=== PATIENT | female | born 1980 | race African-American/Black ===

== ENCOUNTER 2020-06-13 13:35 | Emergency (ER) | payer SELFPAY ==
[~2020-06-13] VITALS: Ht 170.2 cm; Wt 136.1 kg
[2020-06-13 14:22] LABS: BASOPHILS % (AUTO) 4.2 % (0.0-2.0); EOSINOPHILS % (AUTO) 0.5 % (0.0-3.0); HEMATOCRIT 35.7 % (37.0-47.0); HEMOGLOBIN 11.5 G/DL (12.0-16.0); LYMPHOCYTES % (AUTO) 9.7 % (20.0-45.0); MEAN CORPUSCULAR VOLUME 78 FL (80-99); MONOCYTES % (AUTO) 9.7 % (1.0-10.0); NEUTROPHILS % (AUTO) 75.9 % (45.0-75.0); PLATELET COUNT 340 K/UL (150-450); RED BLOOD COUNT 4.58 M/UL (4.20-5.40); RED CELL DISTRIBUTION WIDTH 13.7 % (11.6-14.8); WHITE BLOOD COUNT 12.4 K/UL (4.8-10.8)
[2020-06-13 14:24] VITALS: BP 139/92
--- NOTE | 2020-06-13 14:26 | NUR ---
ED Nurse Note:pt. was BIBA from the street with fentanyl overdose, pt. is A/Ox2 not answering any questions, blood was sent to labs and IV fluids given, pt. placed on addictions therapist, VSS
[2020-06-13 14:41] LABS: ANION GAP 12 mmol/L (5-15); BLOOD UREA NITROGEN 11 mg/dL (7-18); CALCIUM 9.1 MG/DL (8.5-10.1); CARBON DIOXIDE 24 MMOL/L (21-32); CHLORIDE 102 MMOL/L (98-107); CREATININE 1.3 MG/DL (0.55-1.30); POTASSIUM 3.4 MMOL/L (3.5-5.1); SODIUM 138 MMOL/L (136-145)
[2020-06-13 14:50] LABS: ALANINE AMINOTRANSFERASE 11 U/L (12-78); ALBUMIN/GLOBULIN RATIO 0.6 (1.0-2.7); ALKALINE PHOSPHATASE 72 U/L (46-116); ASPARTATE AMINO TRANSFERASE 15 U/L (15-37); BILIRUBIN,TOTAL 0.2 MG/DL (0.2-1.0)
--- NOTE | 2020-06-13 15:32 | Emergency Room Report ---
History of Present Illness General Chief Complaint: Overdose Source: Patient (Cami Doran) Present Illness HPI 39-year-old female with unknown past medical history brought in by paramedics due to fentanyl overdose and Narcan 4 was given. Patient appears to be speaking full sentences however does not want to answer any questions. Denies any pain by shaking her head. Denies any drug allergy. At this time patient is a poor historian. Appears to be stable with stable vital signs upon arrival. (Cami Doran) Allergies: Coded Allergies: No Known Allergies (Unverified , 06/13/20) COVID-19 Screening COVID-19 risk:Contact w/high r: No Has patient experienced sequeira: No COVID-19 Testing performed AUTOMATION AND CONTROLS INSTRUCTOR: No (Cami Doran) Patient History Past Medical History: see triage record Past Surgical History: unable to obtain Family History: unable to obtain Social History: drug use - Fentanyl Now: No Reviewed Nursing Documentation: PMH: Agreed; PSxH: Agreed (Cami Jarrett) Nursing Documentation-PMH Past Medical History: No Stated History (Cami Doran) Review of Systems All Other Systems: negative except mentioned in HPI (Cami Doran) Physical Exam Vital Signs Date Time Temp Pulse Resp B/P (MAP) Pulse Ox O2 Delivery O2 Flow Rate FiO2 06/13/20 13:37 97.9 113 16 144/97 (113) 98 Room Air Sp02 EP Interpretation: reviewed, normal General Appearance: alert/responsive, no apparent distress, GCS 15, non-toxic Head: atraumatic Eyes: PERRL, lids + conjunctiva normal ENT: hearing intact, no angioedema Neck: supple/symm/no masses, no meningismus Respiratory: effort normal, no wheezing, chest symmetrical Cardiovascular: regular rate, rhythm, no edema Cardiovascular #2: 2+ carotid (R), 2+ carotid (L), 2+ dorsalis pedis (R), 2+ dorsalis pedis (L) Gastrointestinal: non-tender, no mass, non-distended, no rebound/guarding, normal bowel sounds Musculoskeletal: gait & station normal, normal ROM Neurologic: oriented x3, sensory intact, normal speech Psychiatric: anxious Skin: normal inspection, no rash Lymphatic: normal inspection (Cami Doran) Medical Decision Making PA Attestation All diagnoses and treatment plans were reviewed and discussed with my supervising physician Dr. Yin (Cami Doran) Diagnostic Impression: Primary Impression: Opiate overdose ER Course 39-year-old female with unknown past medical history brought in by paramedics due to fentanyl overdose and Narcan 4 was given. Patient appears to be speaking full sentences however does not want to answer any questions. Denies any pain by shaking her head. Denies any drug allergy. At this time patient is a poor historian. Appears to be stable with stable vital signs upon arrival. Ddx considered but are not limited to: generalized anxiety disorder, panic attack, depression with psychotic feature, bipolar disorder, drug overdose Refused to give urine Vital signs: are WNL, pt. is afebrile H&PE are most consistent with: Fentanyl overdose ORDERS: Psychiatric order set ED INTERVENTIONS: NS bolus I signed out the patient to Dr. Yin at 8PM (Cami Doran) ER Course Assumed care of the patient from the previous provider at approximately 1999. Please refer to initial note for full history and physical exam. Briefly, 39-year-old female brought in for altered mental status secondary to suspected substance abuse. According to EMS the patient was smoking fentanyl and responded to Narcan administration. No respiratory discretion of the ED. Labs show positive for amphetamines. Other labs within normal limits. Patient is now awake and alert and has been allowed to metabolize in the emergency department for over 7 hours. Able to give us her address. Safe for outpatient follow-up. Counseled on drug abuse and referred to outpatient programs. Instructed to return with new or worsening symptoms. Laboratory Tests Test 06/13/20 14:05 06/13/20 19:10 White Blood Count 12.4 K/UL (4.8-10.8) H Red Blood Count 4.58 M/UL (4.20-5.40) Hemoglobin 11.5 G/DL (12.0-16.0) L Hematocrit 35.7 % (37.0-47.0) L Mean Corpuscular Volume 78 FL (80-99) L Mean Corpuscular Hemoglobin 25.2 PG (27.0-31.0) L Mean Corpuscular Hemoglobin Concent 32.3 G/DL (32.0-36.0) Red Cell Distribution Width 13.7 % (11.6-14.8) Platelet Count 340 K/UL (150-450) Mean Platelet Volume 4.7 FL (6.5-10.1) L Neutrophils (%) (Auto) 75.9 % (45.0-75.0) H Lymphocytes (%) (Auto) 9.7 % (20.0-45.0) L Monocytes (%) (Auto) 9.7 % (1.0-10.0) Eosinophils (%) (Auto) 0.5 % (0.0-3.0) Basophils (%) (Auto) 4.2 % (0.0-2.0) H Sodium Level 138 MMOL/L (136-145) Potassium Level 3.4 MMOL/L (3.5-5.1) L Chloride Level 102 MMOL/L (98-107) Carbon Dioxide Level 24 MMOL/L (21-32) Anion Gap 12 mmol/L (5-15) Blood Urea Nitrogen 11 mg/dL (7-18) Creatinine 1.3 MG/DL (0.55-1.30) Estimated Glomerular Filtration Rate 54.7 mL/min (>60) Glucose Level 109 MG/DL (74-106) H Calcium Level 9.1 MG/DL (8.5-10.1) Total Bilirubin 0.2 MG/DL (0.2-1.0) Aspartate Amino Transferase (AST) 15 U/L (15-37) Alanine Aminotransferase (ALT) 11 U/L (12-78) L Alkaline Phosphatase 72 U/L (46-116) Troponin I 0.000 ng/mL (0.000-0.056) Total Protein 8.4 G/DL (6.4-8.2) H Albumin 3.0 G/DL (3.4-5.0) L Globulin 5.4 g/dL Albumin/Globulin Ratio 0.6 (1.0-2.7) L Salicylates Level 2.9 ug/mL (2.8-20) Acetaminophen Level < 2 MCG/ML (10-30) L Serum Alcohol < 3 mg/dL Urine Color Pale yellow Urine Appearance Clear Urine pH 6 (4.5-8.0) Urine Specific Paulina 1.010 (1.005-1.035) Urine Protein Negative (NEGATIVE) Urine Glucose (UA) Negative (NEGATIVE) Urine Ketones Negative (NEGATIVE) Urine Blood 2+ (NEGATIVE) H Urine Nitrite Negative (NEGATIVE) Urine Bilirubin Negative (NEGATIVE) Urine Urobilinogen Normal MG/DL (0.0-1.0) Urine Leukocyte Esterase Negative (NEGATIVE) Urine RBC 2-4 /HPF (0 - 2) H Urine WBC 0-2 /HPF (0 - 2) Urine Squamous Epithelial Cells Occasional /LPF Urine Bacteria Occasional /HPF (NONE) Urine Opiates Screen Negative (NEGATIVE) Urine Barbiturates Screen Negative (NEGATIVE) Phencyclidine (PCP) Screen Negative (NEGATIVE) Urine Amphetamines Screen Positive (NEGATIVE) H Urine Benzodiazepines Screen Negative (NEGATIVE) Urine Cocaine Screen Negative (NEGATIVE) Urine Marijuana (THC) Screen Negative (NEGATIVE) (Cem Yin MD) EKG Diagnostic Results Rate: normal Rhythm: NSR ST Segments: no acute changes Other Impression No acute ST changes ASA given to the pt in ED: No (Cami Doran) Chest X-Ray Diagnostic Results Chest X-Ray Diagnostic Results : Chest X-Ray Ordered: Yes # of Views/Limited/Complete: 1 View Indication: Other EP Interpretation: Yes Interpretation: no consolidation, no effusion, no pneumothorax Impression: No acute disease Electronically Signed by: Cami Camargo PA-C (Cami Doran) Last Vital Signs Date Time Temp Pulse Resp B/P (MAP) Pulse Ox O2 Delivery O2 Flow Rate FiO2 06/13/20 14:24 105 16 Room Air 06/13/20 14:24 97.9 139/92 98 (Cami Doran) Disposition: HOME, SELF-CARE Condition: Stable Referrals: NOT CHOSEN IPA/,REFERRING (PCP) Patient Instructions: Opioid Use Disorder Cami Doran Jun 13, 2020 15:32 Cem Yin MD Jun 13, 2020 20:41
--- NOTE | 2020-06-13 16:42 | Diagnostic Imaging Report ---
Indication: Shortness of Technique: One view of the chest Comparison: none Findings: The heart is upper limits normal in size. No definite infiltrates, effusions, or congestion. There is mild central bronchial wall thickening Impression: No definite acute process
--- NOTE | 2020-06-13 17:37 | NUR ---
ED Nurse Note:pt. is still confused and wants to sleep some more
--- NOTE | 2020-06-13 18:32 | NUR ---
ED Nurse Note:pt. urinated in the bed, she is still confused
--- NOTE | 2020-06-13 19:08 | NUR ---
HAND-OFF: Report given to Jurgen Bonilla
--- NOTE | 2020-06-13 19:10 | NUR ---
ED Nurse Note: received patient from hakeem rn. patient resting in bed with no acute signs of distress. respirations even and unlabored. vitals even and unlabored. pt aox2 with episodes of confusion; able to follow commands. patient drowsy. per ermd, patient medically cleared and ready for discharge when patient is more awake able to ambulate with steady gait. urine collected; sent down to lab. all safety measure met.
[2020-06-13 19:30] VITALS: BP 139/86
[2020-06-13 20:03] LABS: APPEARANCE,URINE CLEAR; BILIRUBIN, URINE NEGATIVE (NEGATIVE); COLOR,URINE PALE YELLOW; GLUCOSE, URINE (UA) NEGATIVE (NEGATIVE); KETONES,URINE NEGATIVE (NEGATIVE); LEUKOCYTE ESTERASE ,URINE NEGATIVE (NEGATIVE); NITRITE,URINE NEGATIVE (NEGATIVE); PH,URINE 6 (4.5-8.0); PROTEIN,URINE NEGATIVE (NEGATIVE); UROBILINOGEN,URINE NORMAL MG/DL (0.0-1.0)
[2020-06-13 20:30] VITALS: BP 133/75
--- NOTE | 2020-06-13 20:30 | NUR ---
ED Nurse Note: patient aox4 with no acute signs of distress. patient able to ambulate with steady gait. presents with linear thought and speech pattern. patient able to provide home address; registered on chart. patient requests to go home. nourishment provided.
[2020-06-13 21:00] VITALS: BP 133/75
--- NOTE | 2020-06-13 21:00 | NUR ---
ER DISCHARGE NOTE: Patient is cleared to be discharged per ERMD, pt is aox4, on room air, with stable vital signs. pt was given dc and prescription instructions, pt was able to verbalize understanding, pt id band removed. pt is able to ambulate with steady gait. pt took all belongings.
--- NOTE | 2020-06-16 06:20 | Cardiology Report ---
APPROVED REPORT EKG Measurement Heart [id number] <Conclusion> Sinus tachycardia Right atrial enlargement Cannot rule out Inferior infarct, age undetermined Anterolateral infarct, age undetermined Abnormal ECG
== END 2020-06-13 21:00 | disposition home or self-care (01) ==
LOC: EDBD 13:35 → EMR 14:38
DX: T40.411A Poisoning by fentanyl or fentanyl analogs, accidental (unintentional), initial encounter (principal); X58.XXXA Exposure to other specified factors, initial encounter; Y92.9 Unspecified place or not applicable; F15.90 Other stimulant use, unspecified, uncomplicated
CPT/HCPCS: 36415; 71045; 80053; 80307; 81003; 84484; 85025; 93005; 96360; 99284; G0480